=== PATIENT | male | born 1935 ===

== ENCOUNTER 2017-12-27 02:27 | Inpatient (IN) | payer BC, OTHER ==
[~2017-12-27] VITALS: Ht 167.6 cm; Wt 77.6 kg
[2017-12-27] MEDS ORDERED: APIX5TAB3 PO (02:37)
[2017-12-27] MEDS ORDERED: LOSA100T6 PO (02:37)
[2017-12-27] MEDS ORDERED: DONE10TA7 PO (02:37)
[2017-12-27] MEDS ORDERED: MULT-114 PO (02:37)
[2017-12-27] MEDS ORDERED: ALPR1TAB6 PO (02:37)
[2017-12-27] MEDS ORDERED: PRAV40TA2 PO (02:37)
[2017-12-27] MEDS ORDERED: METO-247 PO (02:37)
[2017-12-27] MEDS ORDERED: DILT240C32 PO (02:37)
[2017-12-27] MEDS ORDERED: FURO20TA3 PO (02:37)
[2017-12-27] MEDS ORDERED: ISOS30TA4 PO (02:37)
[2017-12-27] MEDS ORDERED: ESCITALOPRAM OX10 MG PO (02:37)
[2017-12-27] MEDS ORDERED: METHYL SALICYLATE/MENTHOL TOPICAL OINTMENT 29GM TUBE. TP PRN (04:30)
[2017-12-27] MEDS ORDERED: MAG HYDROX/AL HYDROX/SIMETH 30 ML ORAL.SUSP PO PRN (04:30)
[2017-12-27] MEDS ORDERED: ACETAMINOPHEN 325 MG TABLET PO PRN (04:30)
[2017-12-27] MEDS ORDERED: MAGNESIUM HYDROXIDE 2,400 MG/30 ML ORAL.SUSP. PO PRN (04:30)
[2017-12-27] MEDS ORDERED: ALPRAZolam 0.5 MG TABLET PO PRN (04:45)
[2017-12-27] MEDS ORDERED: ANTI-COAG MONITOR BY PHARMACY. MC PRN (04:45)
[2017-12-27 06:03] VITALS: BP 143/76
[2017-12-27 07:59] LABS: BASO # 0.1 x10^3/uL (0.0-0.2); BASO % 1 % (0-3); EOS # 0.3 x10^3/uL (0.0-0.7); EOS % 3 % (0-3); HEMATOCRIT 38.8 % (39.0-53.0); HEMOGLOBIN 13.5 g/dL (13.0-17.5); LYMPH # 1.8 x10^3/uL (1.0-4.8); LYMPH % 22 % (24-48); MEAN CORPUSCULAR HEMOGLOBIN 32 pg (25-35); MEAN CORPUSCULAR HGB CONC 35 g/dL (31-37); MEAN CORPUSCULAR VOLUME 93 fL (79-100); MONO # 0.6 x10^3/uL (0.0-1.1); MONO % 7 % (0-9); NEUT # 5.4 x10^3uL (1.8-7.7); NEUT % 67 % (31-73); PLATELET COUNT 302 x10^3/uL (140-400); RED BLOOD COUNT 4.19 x10^6/uL (4.30-5.70); RED CELL DISTRIBUTION WIDTH 14.5 % (11.5-14.5); WHITE BLOOD COUNT 8.1 x10^3/uL (4.0-11.0)
[2017-12-27 08:03] LABS: ALBUMIN 3.1 g/dL (3.4-5.0); ALBUMIN/GLOBULIN RATIO 0.9 (1.0-1.7); GFR 71.5; MAGNESIUM 1.8 mg/dL (1.8-2.4); POTASSIUM 3.2 mmol/L (3.5-5.1); TOTAL BILIRUBIN 0.7 mg/dL (0.2-1.0); TOTAL PROTEIN 6.6 g/dL (6.4-8.2)
[2017-12-27] MEDS: APIXABAN 5 MG TABLET. PO SCH ×2 (08:31→20:40)
[2017-12-27] MEDS: MULTIVITAMIN with MINERAL TABLET. PO SCH (08:32)
[2017-12-27] MEDS: ISOSORBIDE MONONITRATE ER 30 MG TAB.ER.24H PO SCH (08:32)
[2017-12-27] MEDS: METOPROLOL SUCC 24HR ER 50 MG TAB.ER.24H. PO SCH (08:32)
[2017-12-27] MEDS: DONEPEZIL HCL 10 MG TABLET PO SCH (08:32)
[2017-12-27] MEDS: FUROSEMIDE 20 MG TABLET PO SCH (08:32)
[2017-12-27] MEDS: LOSARTAN 50 MG TABLET. PO SCH (08:33)
[2017-12-27] MEDS ORDERED: CITALOPRAM 20 MG TABLET. PO SCH (09:00)
[2017-12-27 13:27] LABS: THYROID STIM HORMONE (TSH) 0.924 uIU/mL (0.358-3.740)
[2017-12-27 16:13] VITALS: BP 102/61
--- NOTE | 2017-12-27 20:13 | HP ---
ADMIT DATE: 12/27/2017 This note covers elements not covered in my initial note 12/27/2017. The patient was seen individually evening of 12/27/2017. Discussed with nursing staff, reviewed the chart and previously discussed with nursing staff after the patient presented to the Emergency Room at [facility] from home. Staff had called me around midnight last night and we reviewed all the referral information for this hospitalization. IDENTIFYING DATA: An 82-year-old male presented to the [facility] Emergency Room from home after he threatened suicide due to his chronic pain. Threatened to jump off the second jesus of his house. He said he lives at home with his daughter. He was aggressive towards the daughter hitting daughter's bedroom door at night. Behaviors were deemed dangerous, out of control, unmanageable. He is psychotic, confused, failed outpatient psychiatric interventions resulting in this referral. CHIEF COMPLAINT: "No." The patient responded after I asked him how long he had been here. He is unaware of it, but as I questioned him, he felt he had been here several weeks. HISTORY OF PRESENT ILLNESS: The patient has a history of dementia, Alzheimer's vascular type, but as stated he lives at home with his daughter, has chronic pain, has been increasingly agitated, aggressive, threatening suicide as noted above. He has had sleep and appetite changes, appeared paranoid. No clear history of bipolar disorder or homicidal ideation. PAST PSYCHIATRIC HISTORY: As above. MEDICAL HISTORY: Positive for hypertension, hyperlipidemia, diabetes mellitus, atrial fibrillation, pacemaker in place, COPD. Diet is regular, takes his medications whole, ambulates independently. UA was negative at [facility] Emergency Room. CODE STATUS: Full code. ALLERGIES: TRAMADOL, TORADOL. CURRENT PSYCHOTROPICS: Celexa 20 mg a day, Xanax 1 mg q.8 hours p.r.n. anxiety, Aricept 10 mg a day. FAMILY HISTORY: Noncontributory. SOCIAL HISTORY: As noted above. No alcohol or drug abuse, physical, sexual or elder abuse history is noted. Not known to be a perpetrator. REACTION TO HOSPITALIZATION: The patient is somewhat oblivious of it. ASSETS: Supportive family. MENTAL STATUS EXAMINATION: The patient was seen individually evening of 12/27/2017. He is oriented to himself at times situation. He is not very verbal, somewhat paranoid, suspicious, depressed and affect is mood congruent. Insight, judgment, recent and remote memory, attention, concentration, fund of knowledge poor, consistent with his diagnosis. IMPRESSION: Major neurocognitive disorder, Alzheimer, vascular with depression, delusion, behavioral disturbance; anxiety disorder, unspecified; impulse control disorder, unspecified. Rest as above. PLAN: Admit to geropsychiatry unit at [facility]. I will see the patient daily individually from a psychiatric standpoint, medical followup per Dr. Clancy/Dr. Scanlon. We will go ahead and change the Celexa to Zoloft 50 mg a day, add BuSpar 5 mg in the morning and increase gradually for anxiety, agitation. Continue Xanax p.r.n. along with Aricept. Make further changes post baseline assessment. MAN Lee FLORES MD DR: KENNY/lakia JOB#: [id number] / [id number]
[2017-12-27] MEDS: POTASSIUM CHLORIDE 20 MEQ TABLET.ER. PO SCH (20:40)
[2017-12-27] MEDS: ATORVASTATIN CALCIUM 10 MG TABLET. PO SCH (20:40)
--- NOTE | 2017-12-27 21:00 | PDOC ---
Exam Note: Luciano Note: Please also refer to the separate dictated note~for this date of service dictated separately.~Patient seen individually. Discussed the patient with Nursing staff reviewed the chart.~Reviewed interim history and current functioning. Reviewed vital signs,~Labs/ Radiology~and current medications noted below. Continue current treatment with the changes noted in the dictated addendum note Assessment: Vital Signs: Vital Signs Date Time Temp Pulse Resp B/P (MAP) Pulse Ox O2 Delivery O2 Flow Rate FiO2 12/27/17 16:13 97.7 71 16 102/61 (75) 99 Room Air Labs: Laboratory Tests Test 12/27/17 07:30 White Blood Count 8.1 x10^3/uL (4.0-11.0) Red Blood Count 4.19 x10^6/uL (4.30-5.70) L Hemoglobin 13.5 g/dL (13.0-17.5) Hematocrit 38.8 % (39.0-53.0) L Mean Corpuscular Volume 93 fL (79-100) Mean Corpuscular Hemoglobin 32 pg (25-35) Mean Corpuscular Hemoglobin Concent 35 g/dL (31-37) Red Cell Distribution Width 14.5 % (11.5-14.5) Platelet Count 302 x10^3/uL (140-400) Neutrophils (%) (Auto) 67 % (31-73) Lymphocytes (%) (Auto) 22 % (24-48) L Monocytes (%) (Auto) 7 % (0-9) Eosinophils (%) (Auto) 3 % (0-3) Basophils (%) (Auto) 1 % (0-3) Neutrophils # (Auto) 5.4 x10^3uL (1.8-7.7) Lymphocytes # (Auto) 1.8 x10^3/uL (1.0-4.8) Monocytes # (Auto) 0.6 x10^3/uL (0.0-1.1) Eosinophils # (Auto) 0.3 x10^3/uL (0.0-0.7) Basophils # (Auto) 0.1 x10^3/uL (0.0-0.2) Sodium Level 140 mmol/L (136-145) Potassium Level 3.2 mmol/L (3.5-5.1) L Chloride Level 102 mmol/L (98-107) Carbon Dioxide Level 29 mmol/L (21-32) Anion Gap 9 (6-14) Blood Urea Nitrogen 20 mg/dL (8-26) Creatinine 1.0 mg/dL (0.7-1.3) Estimated GFR (Cockcroft-Gault) 71.5 BUN/Creatinine Ratio 20 (6-20) Glucose Level 95 mg/dL (70-99) Calcium Level 9.0 mg/dL (8.5-10.1) Magnesium Level 1.8 mg/dL (1.8-2.4) Iron Level 110 ug/dL (65-175) Total Iron Binding Capacity 298 ug/dL (250-450) Iron Saturation 37 % (15-34) H Total Bilirubin 0.7 mg/dL (0.2-1.0) Aspartate Amino Transferase (AST) 22 U/L (15-37) Alanine Aminotransferase (ALT) 29 U/L (16-63) Alkaline Phosphatase 104 U/L (46-116) Total Protein 6.6 g/dL (6.4-8.2) Albumin 3.1 g/dL (3.4-5.0) L Albumin/Globulin Ratio 0.9 (1.0-1.7) L Triglycerides Level 87 mg/dL (0-150) Cholesterol Level 155 mg/dL (0-200) LDL Cholesterol, Calculated 92 mg/dL (0-100) VLDL Cholesterol, Calculated 17 mg/dL (0-40) Non-HDL Cholesterol Calculated 109 mg/dL (0-129) HDL Cholesterol 46 mg/dL (40-60) Cholesterol/HDL Ratio 3.0 Vitamin B12 Level 468 pg/mL (247-911) 25-Hydroxy Vitamin D Total 39.3 ng/mL (30-100) Thyroid Stimulating Hormone (TSH) 0.924 uIU/mL (0.358-3.740) Current Medications: Meds: Current Medications Acetaminophen (Tylenol) 650 mg PRN Q6HRS PRN PO PAIN / TEMP; Start 12/27/17 at 04:30 Multi-Ingredient Ointment (Analgesic [place]) 1 ashvin PRN QID PRN TP MUSCLE PAIN; Start 12/27/17 at 04:30 Al Hydroxide/Mg Hydroxide (Mylanta Plus Xs) 15 ml PRN AFTMEALHC PRN PO DYSPEPSIA; Start 12/27/17 at 04:30 Magnesium Hydroxide (Milk Of Magnesia) 2,400 mg PRN QHS PRN PO CONSTIPATION; Start 12/27/17 at 04:30 Alprazolam (Xanax) 1 mg PRN Q8HRS PRN PO ANXIETY / AGITATION; Start 12/27/17 at 04:45 Donepezil HCl (Aricept) 10 mg DAILY PO Last administered on 12/27/17 08:32; Start 12/27/17 at 09:00 Citalopram Hydrobromide (CeleXA) 20 mg DAILY PO Last administered on 12/27/17 08:31; Start 12/27/17 at 09:00; Stop 12/27/17 at 18:52; Status DC Diltiazem HCl (Cardizem 24hr Cd) 240 mg DAILY PO Last administered on at 08:31; Start 12/27/17 at 09:00 Furosemide (Lasix) 20 mg DAILY PO Last administered on 12/27/17 08:32; Start 12/27/17 at 09:00 Isosorbide Mononitrate (Imdur) 30 mg DAILY PO Last administered on 12/27/17 08 :32; Start 12/27/17 at 09:00 Apixaban (Eliquis) 5 mg BID PO Last administered on 12/27/17 20:40; Start at 09:00 Losartan Potassium (Cozaar) 100 mg DAILY PO Last administered on 12/27/17 08: 33; Start 12/27/17 at 09:00 Metoprolol Succinate (Toprol Xl) 100 mg DAILY PO Last administered on 08:32; Start 12/27/17 at 09:00 Multivitamins/ Calcium (Thera-M Plus) 1 tab DAILY PO Last administered on 08:32; Start 12/27/17 at 09:00 Atorvastatin Calcium (Lipitor) 10 mg QHS PO Last administered on 12/27/17at 20: 40; Start 12/27/17 at 21:00 Info (Anti-Coagulation Monitoring By Pharmacy) 1 each PRN DAILY PRN MC SEE COMMENTS; Start 12/27/17 at 04:45 Sertraline HCl (Zoloft) 50 mg DAILY PO ; Start 12/28/17 at 09:00 Buspirone HCl (Buspar) 5 mg DAILY PO ; Start 12/28/17 at 09:00 Potassium Chloride (Klor-Con) 20 meq BID PO Last administered on 12/27/17at 20: 40; Start 12/27/17 at 21:00 Active Scripts Active Reported Donepezil Hcl 10 Mg Tablet 10 Mg PO DAILY Metoprolol Succinate ( Xl ) (Metoprolol Succinate) 100 Mg Tab.er.24h 100 Mg PO DAILY Losartan Potassium 100 Mg Tablet 100 Mg PO DAILY Diltiazem 24HR Cd (Diltiazem Hcl) 240 Mg Cap.er.24h 240 Mg PO DAILY Pravastatin Sodium 40 Mg Tablet 40 Mg PO QHS Multivitamins With Minerals (Multivitamin With Minerals) 1 Each Tablet 1 Tab PO DAILY Escitalopram Oxalate 10 Mg Tablet 10 Mg PO DAILY Alprazolam 1 Mg Tablet 1 Mg PO PRN TID PRN Eliquis (Apixaban) 5 Mg Tablet 5 Mg PO BID Isosorbide Mononitrate Er (Isosorbide Mononitrate) 30 Mg Tab.er.24h 30 Mg PO DAILY Furosemide 20 Mg Tablet 20 Mg PO DAILY I have reviewed the current psychotropics carefully including drug interactions. Risk benefit ratio favors no change other than as noted in my dictated progress note. Diagnosis: Problems: (1) Anxiety disorder (2) Impulse control disorder (3) Dementia, vascular, with delusions (4) Dementia, vascular, with depression (5) Dementia in Alzheimer's disease with delusions (6) Dementia in Alzheimer's disease with depression ADDISON FLORES MD December 27, 2017 21:00
[2017-12-28 03:09] LABS: T3 TOTAL 73 ng/dL (71-180); THYROXINE 4.1 ug/dL (4.5-12.0)
[2017-12-28 04:07] LABS: HEMOGLOBIN A1C 6.1 % (4.8-5.6)
[2017-12-28 06:16] VITALS: BP 127/69
[2017-12-28] MEDS: METOPROLOL SUCC 24HR ER 50 MG TAB.ER.24H. PO SCH (09:15)
[2017-12-28] MEDS: DONEPEZIL HCL 10 MG TABLET PO SCH (09:15)
[2017-12-28] MEDS: MULTIVITAMIN with MINERAL TABLET. PO SCH (09:16)
[2017-12-28] MEDS: busPIRone 5 MG TABLET. PO SCH (09:16)
[2017-12-28] MEDS: LOSARTAN 50 MG TABLET. PO SCH (09:16)
[2017-12-28] MEDS: ISOSORBIDE MONONITRATE ER 30 MG TAB.ER.24H PO SCH (09:16)
[2017-12-28] MEDS: FUROSEMIDE 20 MG TABLET PO SCH (09:16)
[2017-12-28] MEDS: APIXABAN 5 MG TABLET. PO SCH ×2 (09:16→19:14)
[2017-12-28] MEDS: SERTRALINE 50 MG TABLET. PO SCH (09:16)
[2017-12-28] MEDS: POTASSIUM CHLORIDE 20 MEQ TABLET.ER. PO SCH ×2 (09:17→19:14)
--- NOTE | 2017-12-28 13:09 | EKG ---
[address] [address] Test Date: 2017-12-28 Test Time: 12:41:09 Pat Name: DARIAN DEL TORO Department: Room: [facility] Gender: M Real Estate Leasing Agent: : [id number] Requested By: ADDISON FLORES Order Number: [id number] Reading MD: Measurements Intervals [place] Rate: 80 P: -90 AL: 294 QRS: -76 QRSD: 176 T: 91 QT: 434 QTc: 505 Interpretive Statements SINUS RHYTHM PROLONGED AL INTERVAL ABNORMAL LEFT AXIS DEVIATION NON SPECIFIC INTRAVENTRICULAR BLOCK QRS(T) CONTOUR ABNORMALITY CONSISTENT WITH SEPTAL INFARCT PROBABLY OLD CONSISTENT WITH INFERIOR INFARCT POSSIBLY RECENT ABNORMAL ECG RI6.01 No previous ECG available for comparison
[2017-12-28 16:10] VITALS: BP 121/68
[2017-12-28] MEDS: ATORVASTATIN CALCIUM 10 MG TABLET. PO SCH (19:14)
--- NOTE | 2017-12-28 20:39 | PDOC ---
Exam Note: Luciano Note: Please also refer to the separate dictated note~for this date of service dictated separately.~Patient seen individually. Discussed the patient with Nursing staff reviewed the chart.~Reviewed interim history and current functioning. Reviewed vital signs,~Labs/ Radiology~and current medications noted below. Continue current treatment with the changes noted in the dictated addendum note Assessment: Vital Signs: Vital Signs Date Time Temp Pulse Resp B/P (MAP) Pulse Ox O2 Delivery O2 Flow Rate FiO2 12/28/17 16:10 97.2 67 20 121/68 (85) 97 Room Air I&O Intake and Output 12/28/17 07:00 Intake Total 600 ml Balance 600 ml Intake Oral 600 ml Current Medications: Meds: Current Medications Acetaminophen (Tylenol) 650 mg PRN Q6HRS PRN PO PAIN / TEMP; Start 12/27/17 at 04:30 Multi-Ingredient Ointment (Analgesic [place]) 1 ashvin PRN QID PRN TP MUSCLE PAIN; Start 12/27/17 at 04:30 Al Hydroxide/Mg Hydroxide (Mylanta Plus Xs) 15 ml PRN AFTMEALHC PRN PO DYSPEPSIA; Start 12/27/17 at 04:30 Magnesium Hydroxide (Milk Of Magnesia) 2,400 mg PRN QHS PRN PO CONSTIPATION; Start 12/27/17 at 04:30 Alprazolam (Xanax) 1 mg PRN Q8HRS PRN PO ANXIETY / AGITATION; Start 12/27/17 at 04:45 Donepezil HCl (Aricept) 10 mg DAILY PO Last administered on 12/28/17at 09:15; Start 12/27/17 at 09:00 Citalopram Hydrobromide (CeleXA) 20 mg DAILY PO Last administered on 12/27/17at 08:31; Start 12/27/17 at 09:00; Stop 12/27/17 at 18:52; Status DC Diltiazem HCl (Cardizem 24hr Cd) 240 mg DAILY PO Last administered on at 09:15; Start 12/27/17 at 09:00 Furosemide (Lasix) 20 mg DAILY PO Last administered on 12/28/17at 09:16; Start 12/27/17 at 09:00 Isosorbide Mononitrate (Imdur) 30 mg DAILY PO Last administered on 12/28/17 09 :16; Start 12/27/17 at 09:00 Apixaban (Eliquis) 5 mg BID PO Last administered on 12/28/17 19:14; Start at 09:00 Losartan Potassium (Cozaar) 100 mg DAILY PO Last administered on 12/28/17 09: 16; Start 12/27/17 at 09:00 Metoprolol Succinate (Toprol Xl) 100 mg DAILY PO Last administered on 09:15; Start 12/27/17 at 09:00 Multivitamins/ Calcium (Thera-M Plus) 1 tab DAILY PO Last administered on 09:16; Start 12/27/17 at 09:00 Atorvastatin Calcium (Lipitor) 10 mg QHS PO Last administered on 12/28/17 19: 14; Start 12/27/17 at 21:00 Info (Anti-Coagulation Monitoring By Pharmacy) 1 each PRN DAILY PRN MC SEE COMMENTS; Start 12/27/17 at 04:45 Sertraline HCl (Zoloft) 50 mg DAILY PO Last administered on 12/28/17 09:16; Start 12/28/17 at 09:00; Stop 12/30/17 at 08:00 Buspirone HCl (Buspar) 5 mg DAILY PO Last administered on 12/28/17 09:16; Start 12/28/17 at 09:00 Potassium Chloride (Klor-Con) 20 meq BID PO Last administered on 12/28/17 19: 14; Start 12/27/17 at 21:00 Sertraline HCl (Zoloft) 75 mg DAILY PO ; Start 12/30/17 at 09:00 Active Scripts Active Reported Donepezil Hcl 10 Mg Tablet 10 Mg PO DAILY Metoprolol Succinate ( Xl ) (Metoprolol Succinate) 100 Mg Tab.er.24h 100 Mg PO DAILY Losartan Potassium 100 Mg Tablet 100 Mg PO DAILY Diltiazem 24HR Cd (Diltiazem Hcl) 240 Mg Cap.er.24h 240 Mg PO DAILY Pravastatin Sodium 40 Mg Tablet 40 Mg PO QHS Multivitamins With Minerals (Multivitamin With Minerals) 1 Each Tablet 1 Tab PO DAILY Escitalopram Oxalate 10 Mg Tablet 10 Mg PO DAILY Alprazolam 1 Mg Tablet 1 Mg PO PRN TID PRN Eliquis (Apixaban) 5 Mg Tablet 5 Mg PO BID Isosorbide Mononitrate Er (Isosorbide Mononitrate) 30 Mg Tab.er.24h 30 Mg PO DAILY Furosemide 20 Mg Tablet 20 Mg PO DAILY I have reviewed the current psychotropics carefully including drug interactions. Risk benefit ratio favors no change other than as noted in my dictated progress note. Diagnosis: Problems: (1) Anxiety disorder (2) Impulse control disorder (3) Dementia, vascular, with delusions (4) Dementia, vascular, with depression (5) Dementia in Alzheimer's disease with delusions (6) Dementia in Alzheimer's disease with depression ADDISON FLORES MD December 28, 2017 20:39
--- NOTE | 2017-12-28 23:45 | CONS ---
DATE OF CONSULTATION: 12/28/2017 REASON FOR CONSULTATION: Medical management. HISTORY OF PRESENT ILLNESS: The patient is an 82-year-old male patient who apparently presented to [facility] Emergency Room from home after he threatened suicide due to his chronic pain. He threatened to jump off the second story of his house. He said he lives at home with his daughter. He was aggressive towards her daughter, hitting daughter's bedroom door at night. His behavior apparently was deemed dangerous, out of control, unmanageable. He was psychotic, confused, and therefore, he was admitted for inpatient psychiatric stabilization. When I questioned him this afternoon, he complained his daughter's friend as the cause of all his trouble, although he cannot be more specific and explain why she is doing this for him. In fact, he denied having any medical problem at all. PAST PSYCHIATRIC HISTORY: Significant for dementia, Alzheimer, vascular type. When I asked him about pain, he said he does not have any pain at all, although the whole reason for his agitation and aggressive behavior was because of his chronic pain according to the admission history. PAST MEDICAL HISTORY: Significant for hypertension, hyperlipidemia, benign prostatic hypertrophy, atrial fibrillation, and also COPD as well as type 2 diabetes, although at least in his medication list, he does not have any medication for his diabetes. ALLERGIES: He is allergic to TRAMADOL and TORADOL. MEDICATIONS: He is currently on Aricept 10 mg once a day, apixaban 5 mg twice a day, pravastatin sodium 40 mg at bedtime, isosorbide mononitrate 30 mg daily, metoprolol succinate 100 mg once a day, diltiazem hydrochloride 240 mg daily, losartan potassium 100 mg daily, escitalopram oxalate 10 mg once a day, alprazolam 1 mg p.o. t.i.d. p.r.n. for anxiety and agitation. He is on furosemide 20 mg daily and multivitamin 1 tablet once a day. FAMILY HISTORY: Noncontributory. SOCIAL HISTORY: He lives with his daughter. He said he quit smoking in 1953 and does not drink alcohol. He used to be a diesel engine i pipe fitter. According to his description, he has been fairly independent, taking care of himself. His daughter does the cooking according to him. PHYSICAL EXAMINATION: GENERAL: When I examined him this afternoon, he looked well and was clearly in no apparent respiratory distress, pale, but no jaundice, cyanosis, or thyromegaly. No jugular venous distension. No lower limb edema. VITAL SIGNS: Her heart rate was 61, blood pressure was 127/69, temperature was 97.4, respiratory rate was 18, and oxygen saturation was 96% on room air. HEAD, EYES, EARS, NOSE, AND THROAT: Showed normocephalic, atraumatic. NECK: His neck was supple. HEART: Showed normal first and second heart sounds. No gallop, rub, or murmur. CHEST: Clear to auscultation. No crepitation or rhonchi. ABDOMEN: Scaphoid, soft, nontender. NEUROLOGIC: He is awake, alert, responding appropriately, seemed to be very pleasant, displayed no evidence of any aggression towards us. All his cranial nerves seemed to be grossly intact. He moves extremities without difficulty. He said he ambulates with a walker without assistance, but it seemed clearly he has severe dementia as he not recalled that he had any pain and did not recall any threat to suicide. Medically, he has multiple medical problems including hypertension, hyperlipidemia, atrial fibrillation, benign prostatic hypertrophy, type 2 diabetes, and COPD. LABORATORY DATA: Showed his serum sodium was 140, potassium 3.2, chloride 102, bicarbonate 29, anion gap of 9, BUN 20, creatinine 1, estimated GFR was 71 mL per minute. His glucose was 95, calcium was 9, magnesium was 1.8. Total bilirubin, AST, ALT, alkaline phosphatase, total protein was 6.6, albumin was 3.1. His hemoglobin A1c was 6.1%. His serum iron was high at 110, TIBC was 298 and percent saturation was 37%. His serum triglycerides were 87. Total cholesterol 155, LDL cholesterol was 92, VLDL was 17, and HDL cholesterol of 46, the ratio was 3. His serum vitamin B12 was 468 picograms per mL. A 25-hydroxyvitamin D was 39. TSH was 0.924. Total T4 was 4.1 and total T3 was 73. His white cell count was 8100, hemoglobin 13.5, hematocrit 39, MCV 93, and platelet count 302,000 with normal manual differential. So, all in all, the patient seems to be medically stable. The only abnormality on his lab work is that his potassium was low at 3.2. We did start him yesterday on potassium chloride. I will check his labs again tomorrow. Otherwise, I will continue with all his medication. I will review all the lab works that are still pending at the time of this dictation and make any necessary recommendation. Thank you, Dr. Sidhu for allowing me to participate in the care of this patient. TAHIR MORALES MD DR: RICH/lakia JOB#: [id number] / [id number]
[2017-12-29 06:05] VITALS: BP 150/78
[2017-12-29] MEDS: POTASSIUM CHLORIDE 20 MEQ TABLET.ER. PO SCH ×2 (09:26→19:53)
[2017-12-29] MEDS: ISOSORBIDE MONONITRATE ER 30 MG TAB.ER.24H PO SCH (09:26)
[2017-12-29] MEDS: MULTIVITAMIN with MINERAL TABLET. PO SCH (09:26)
[2017-12-29] MEDS: SERTRALINE 50 MG TABLET. PO SCH (09:26)
[2017-12-29] MEDS: DONEPEZIL HCL 10 MG TABLET PO SCH (09:26)
[2017-12-29] MEDS: APIXABAN 5 MG TABLET. PO SCH ×2 (09:26→19:54)
[2017-12-29] MEDS: busPIRone 5 MG TABLET. PO SCH (09:26)
[2017-12-29] MEDS: FUROSEMIDE 20 MG TABLET PO SCH (09:26)
[2017-12-29] MEDS: METOPROLOL SUCC 24HR ER 50 MG TAB.ER.24H. PO SCH (09:27)
[2017-12-29] MEDS: LOSARTAN 50 MG TABLET. PO SCH (09:27)
[2017-12-29 16:04] VITALS: BP 113/61
[2017-12-29] MEDS: ATORVASTATIN CALCIUM 10 MG TABLET. PO SCH (19:54)
--- NOTE | 2017-12-29 20:41 | PDOC ---
Exam Note: Luciano Note: Please also refer to the separate dictated note~for this date of service dictated separately.~Patient seen individually. Discussed the patient with Nursing staff reviewed the chart.~Reviewed interim history and current functioning. Reviewed vital signs,~Labs/ Radiology~and current medications noted below. Continue current treatment with the changes noted in the dictated addendum note Assessment: Vital Signs: Vital Signs Date Time Temp Pulse Resp B/P (MAP) Pulse Ox O2 Delivery O2 Flow Rate FiO2 12/29/17 16:04 96.8 68 18 113/61 (78) 97 12/29/17 06:05 Room Air I&O Intake and Output 12/29/17 07:00 Intake Total 1200 ml Balance 1200 ml Intake Oral 1200 ml Current Medications: Meds: Current Medications Acetaminophen (Tylenol) 650 mg PRN Q6HRS PRN PO PAIN / TEMP; Start 12/27/17 at 04:30 Multi-Ingredient Ointment (Analgesic [place]) 1 ashvin PRN QID PRN TP MUSCLE PAIN; Start 12/27/17 at 04:30 Al Hydroxide/Mg Hydroxide (Mylanta Plus Xs) 15 ml PRN AFTMEALHC PRN PO DYSPEPSIA; Start 12/27/17 at 04:30 Magnesium Hydroxide (Milk Of Magnesia) 2,400 mg PRN QHS PRN PO CONSTIPATION; Start 12/27/17 at 04:30 Alprazolam (Xanax) 1 mg PRN Q8HRS PRN PO ANXIETY / AGITATION; Start 12/27/17 at 04:45 Donepezil HCl (Aricept) 10 mg DAILY PO Last administered on 12/29/17at 09:26; Start 12/27/17 at 09:00 Citalopram Hydrobromide (CeleXA) 20 mg DAILY PO Last administered on 12/27/17at 08:31; Start 12/27/17 at 09:00; Stop 12/27/17 at 18:52; Status DC Diltiazem HCl (Cardizem 24hr Cd) 240 mg DAILY PO Last administered on 12/29/17at 09:26; Start 12/27/17 at 09:00 Furosemide (Lasix) 20 mg DAILY PO Last administered on 12/29/17at 09:26; Start at 09:00 Isosorbide Mononitrate (Imdur) 30 mg DAILY PO Last administered on 12/29/17 09: 26; Start 12/27/17 at 09:00 Apixaban (Eliquis) 5 mg BID PO Last administered on 12/29/17 19:54; Start 12/27 at 09:00 Losartan Potassium (Cozaar) 100 mg DAILY PO Last administered on 12/29/17 09:27 ; Start 12/27/17 at 09:00 Metoprolol Succinate (Toprol Xl) 100 mg DAILY PO Last administered on 12/29/17 09:27; Start 12/27/17 at 09:00 Multivitamins/ Calcium (Thera-M Plus) 1 tab DAILY PO Last administered on 09:26; Start 12/27/17 at 09:00 Atorvastatin Calcium (Lipitor) 10 mg QHS PO Last administered on 12/29/17 19:54 ; Start 12/27/17 at 21:00 Info (Anti-Coagulation Monitoring By Pharmacy) 1 each PRN DAILY PRN MC SEE COMMENTS; Start 12/27/17 at 04:45 Sertraline HCl (Zoloft) 50 mg DAILY PO Last administered on 12/29/17 09:26; Start 12/28/17 at 09:00; Stop 12/30/17 at 08:00 Buspirone HCl (Buspar) 5 mg DAILY PO Last administered on 12/29/17 09:26; Start 12/28/17 at 09:00 Potassium Chloride (Klor-Con) 20 meq BID PO Last administered on 12/29/17 19:53 ; Start 12/27/17 at 21:00 Sertraline HCl (Zoloft) 75 mg DAILY PO ; Start 12/30/17 at 09:00 Active Scripts Active Reported Donepezil Hcl 10 Mg Tablet 10 Mg PO DAILY Metoprolol Succinate ( Xl ) (Metoprolol Succinate) 100 Mg Tab.er.24h 100 Mg PO DAILY Losartan Potassium 100 Mg Tablet 100 Mg PO DAILY Diltiazem 24HR Cd (Diltiazem Hcl) 240 Mg Cap.er.24h 240 Mg PO DAILY Pravastatin Sodium 40 Mg Tablet 40 Mg PO QHS Multivitamins With Minerals (Multivitamin With Minerals) 1 Each Tablet 1 Tab PO DAILY Escitalopram Oxalate 10 Mg Tablet 10 Mg PO DAILY Alprazolam 1 Mg Tablet 1 Mg PO PRN TID PRN Eliquis (Apixaban) 5 Mg Tablet 5 Mg PO BID Isosorbide Mononitrate Er (Isosorbide Mononitrate) 30 Mg Tab.er.24h 30 Mg PO DAILY Furosemide 20 Mg Tablet 20 Mg PO DAILY I have reviewed the current psychotropics carefully including drug interactions. Risk benefit ratio favors no change other than as noted in my dictated progress note. Diagnosis: Problems: (1) Anxiety disorder (2) Impulse control disorder (3) Dementia, vascular, with delusions (4) Dementia, vascular, with depression (5) Dementia in Alzheimer's disease with delusions (6) Dementia in Alzheimer's disease with depression ADDISON FLORES MD Dec 29, 2017 20:41
--- NOTE | 2017-12-30 01:53 | PN ---
DATE: 12/28/2017 This is late entry of 12/28/2017 covers elements not covered in my initial note 12/28/2017. SUBJECTIVE: I met with the patient evening of 12/28/2017 and staffed a treatment team meeting with the entire team in the morning. We reviewed the patient's history at length. Reportedly, the patient had a lady who comes in to assist him at home. He describes her as being "an old hag." and then referred to her at one point with the B word. When I questioned him in the evening; however, he states he is appreciative of her help, but gets irritable with her because of the constant proximity of contact, which is needed for her to assist him. He is oriented and aware of the year and where he is. In the morning, he was somewhat upset, wanting to talk to his daughter. He minimizes the statement of suicide threatening to jump off the second story of the house and being aggressive with his daughter or banging on her door at night, all of which I processed with him. REVIEW OF SYSTEMS: No CV, , pulmonary, eye, ENT system symptoms on review. Reliability varies. MENTAL STATUS EXAM: As noted above. Abstraction fair, computation impaired, language function intact. Attention span short. He is quite verbal, smiling at times, a little irritable at other times. LABORATORY DATA: Reviewed. IMPRESSION: Major depressive disorder, recurrent. Major neurocognitive disorder, early Alzheimer, vascular with depression. Rest unchanged. PLAN: Continue Zoloft 50 mg a day, increase to 75 mg after 2 days on 50. Continue Aricept 10 mg a day, Xanax p.r.n., BuSpar 5 mg daily in the morning. MAN Lee FLORES MD DR: KENNY/lakia JOB#: [id number] / [id number]
[2017-12-30 06:15] VITALS: BP 150/88
[2017-12-30] MEDS: METOPROLOL SUCC 24HR ER 50 MG TAB.ER.24H. PO SCH (08:02)
[2017-12-30] MEDS: POTASSIUM CHLORIDE 20 MEQ TABLET.ER. PO SCH ×2 (08:02→19:58)
[2017-12-30] MEDS: APIXABAN 5 MG TABLET. PO SCH ×2 (08:03→19:57)
[2017-12-30] MEDS: ISOSORBIDE MONONITRATE ER 30 MG TAB.ER.24H PO SCH (08:03)
[2017-12-30] MEDS: LOSARTAN 50 MG TABLET. PO SCH (08:04)
[2017-12-30] MEDS: busPIRone 5 MG TABLET. PO SCH (08:04)
[2017-12-30] MEDS: DONEPEZIL HCL 10 MG TABLET PO SCH (08:04)
[2017-12-30] MEDS: FUROSEMIDE 20 MG TABLET PO SCH (08:04)
[2017-12-30] MEDS: MULTIVITAMIN with MINERAL TABLET. PO SCH (08:04)
[2017-12-30] MEDS: SERTRALINE 25 MG TABLET. PO SCH (08:07)
[2017-12-30 16:35] VITALS: BP 98/71
[2017-12-30] MEDS: ATORVASTATIN CALCIUM 10 MG TABLET. PO SCH (19:58)
--- NOTE | 2017-12-30 22:06 | PDOC ---
Exam Note: Luciano Note: Please also refer to the separate dictated note~for this date of service dictated separately.~Patient seen individually. Discussed the patient with Nursing staff reviewed the chart.~Reviewed interim history and current functioning. Reviewed vital signs,~Labs/ Radiology~and current medications noted below. Continue current treatment with the changes noted in the dictated addendum note Assessment: Vital Signs: Vital Signs Date Time Temp Pulse Resp B/P (MAP) Pulse Ox O2 Delivery O2 Flow Rate FiO2 12/30/17 16:35 97.8 75 18 98/71 (80) 95 12/29/17 06:05 Room Air I&O Intake and Output 12/30/17 07:00 Intake Total 1080 ml Balance 1080 ml Intake Oral 1080 ml # Bowel Movements 1 Current Medications: Meds: Current Medications Acetaminophen (Tylenol) 650 mg PRN Q6HRS PRN PO PAIN / TEMP; Start 12/27/17 at 04:30 Multi-Ingredient Ointment (Analgesic [place]) 1 ashvin PRN QID PRN TP MUSCLE PAIN; Start 12/27/17 at 04:30 Al Hydroxide/Mg Hydroxide (Mylanta Plus Xs) 15 ml PRN AFTMEALHC PRN PO DYSPEPSIA; Start 12/27/17 at 04:30 Magnesium Hydroxide (Milk Of Magnesia) 2,400 mg PRN QHS PRN PO CONSTIPATION; Start 12/27/17 at 04:30 Alprazolam (Xanax) 1 mg PRN Q8HRS PRN PO ANXIETY / AGITATION; Start 12/27/17 at 04:45 Donepezil HCl (Aricept) 10 mg DAILY PO Last administered on 12/30/17at 08:04; Start 12/27/17 at 09:00 Citalopram Hydrobromide (CeleXA) 20 mg DAILY PO Last administered on 12/27/17at 08:31; Start 12/27/17 at 09:00; Stop 12/27/17 at 18:52; Status DC Diltiazem HCl (Cardizem 24hr Cd) 240 mg DAILY PO Last administered on 12/30/17at 08:04; Start 12/27/17 at 09:00 Furosemide (Lasix) 20 mg DAILY PO Last administered on 12/30/17at 08:04; Start at 09:00 Isosorbide Mononitrate (Imdur) 30 mg DAILY PO Last administered on 12/30/17 08: 03; Start 12/27/17 at 09:00 Apixaban (Eliquis) 5 mg BID PO Last administered on 12/30/17at 19:57; Start 12/27 at 09:00 Losartan Potassium (Cozaar) 100 mg DAILY PO Last administered on 12/30/17at 08:04 ; Start 12/27/17 at 09:00 Metoprolol Succinate (Toprol Xl) 100 mg DAILY PO Last administered on 12/30/17at 08:02; Start 12/27/17 at 09:00 Multivitamins/ Calcium (Thera-M Plus) 1 tab DAILY PO Last administered on at 08:04; Start 12/27/17 at 09:00 Atorvastatin Calcium (Lipitor) 10 mg QHS PO Last administered on 12/30/17at 19:58 ; Start 12/27/17 at 21:00 Info (Anti-Coagulation Monitoring By Pharmacy) 1 each PRN DAILY PRN [facility] SEE COMMENTS; Start 12/27/17 at 04:45 Sertraline HCl (Zoloft) 50 mg DAILY PO Last administered on 12/29/17at 09:26; Start 12/28/17 at 09:00; Stop 12/30/17 at 08:00; Status DC Buspirone HCl (Buspar) 5 mg DAILY PO Last administered on 12/30/17at 08:04; Start 12/28/17 at 09:00; Stop 12/30/17 at 18:36; Status DC Potassium Chloride (Klor-Con) 20 meq BID PO Last administered on 12/30/17at 19:58 ; Start 12/27/17 at 21:00 Sertraline HCl (Zoloft) 75 mg DAILY PO Last administered on 12/30/17at 08:07; Start 12/30/17 at 09:00 Buspirone HCl (Buspar) 5 mg BID@0900,1700 PO ; Start 12/31/17 at 09:00 Active Scripts Active Reported Donepezil Hcl 10 Mg Tablet 10 Mg PO DAILY Metoprolol Succinate ( Xl ) (Metoprolol Succinate) 100 Mg Tab.er.24h 100 Mg PO DAILY Losartan Potassium 100 Mg Tablet 100 Mg PO DAILY Diltiazem 24HR Cd (Diltiazem Hcl) 240 Mg Cap.er.24h 240 Mg PO DAILY Pravastatin Sodium 40 Mg Tablet 40 Mg PO QHS Multivitamins With Minerals (Multivitamin With Minerals) 1 Each Tablet 1 Tab PO DAILY Escitalopram Oxalate 10 Mg Tablet 10 Mg PO DAILY Alprazolam 1 Mg Tablet 1 Mg PO PRN TID PRN Eliquis (Apixaban) 5 Mg Tablet 5 Mg PO BID Isosorbide Mononitrate Er (Isosorbide Mononitrate) 30 Mg Tab.er.24h 30 Mg PO DAILY Furosemide 20 Mg Tablet 20 Mg PO DAILY I have reviewed the current psychotropics carefully including drug interactions. Risk benefit ratio favors no change other than as noted in my dictated progress note. Diagnosis: Problems: (1) Anxiety disorder (2) Impulse control disorder (3) Dementia, vascular, with delusions (4) Dementia, vascular, with depression (5) Dementia in Alzheimer's disease with delusions (6) Dementia in Alzheimer's disease with depression ADDISON FLORES MD Dec 30, 2017 22:06
[2017-12-31] MEDS ORDERED: ACET325T9 PO (03:23)
[2017-12-31] MEDS ORDERED: MAGN400O7 PO (03:24)
[2017-12-31] MEDS ORDERED: MAG30ORA2 PO (03:24)
[2017-12-31] MEDS ORDERED: METH29OI TP (03:25)
[2017-12-31] MEDS ORDERED: SERT50TA PO (03:26)
[2017-12-31] MEDS ORDERED: POTA20TA4 PO (03:26)
[2017-12-31] MEDS ORDERED: BUSP5TAB PO (03:27)
[2017-12-31 05:50] VITALS: BP 151/83
[2017-12-31] MEDS: FUROSEMIDE 20 MG TABLET PO SCH (07:36)
[2017-12-31] MEDS: MULTIVITAMIN with MINERAL TABLET. PO SCH (07:37)
[2017-12-31] MEDS: POTASSIUM CHLORIDE 20 MEQ TABLET.ER. PO SCH ×2 (07:37→19:55)
[2017-12-31] MEDS: ISOSORBIDE MONONITRATE ER 30 MG TAB.ER.24H PO SCH (07:37)
[2017-12-31] MEDS: DONEPEZIL HCL 10 MG TABLET PO SCH (07:37)
[2017-12-31] MEDS: METOPROLOL SUCC 24HR ER 50 MG TAB.ER.24H. PO SCH (07:37)
[2017-12-31] MEDS: APIXABAN 5 MG TABLET. PO SCH ×2 (07:38→19:55)
[2017-12-31] MEDS: SERTRALINE 25 MG TABLET. PO SCH (07:38)
[2017-12-31] MEDS: LOSARTAN 50 MG TABLET. PO SCH (07:38)
[2017-12-31] MEDS: busPIRone 5 MG TABLET. PO SCH ×2 (07:39→17:04)
[2017-12-31 16:29] VITALS: BP 145/81
[2017-12-31] MEDS: ATORVASTATIN CALCIUM 10 MG TABLET. PO SCH (19:55)
--- NOTE | 2017-12-31 19:57 | PDOC ---
Exam Note: Luciano Note: Please also refer to the separate dictated note~for this date of service dictated separately.~Patient seen individually. Discussed the patient with Nursing staff reviewed the chart.~Reviewed interim history and current functioning. Reviewed vital signs,~Labs/ Radiology~and current medications noted below. Continue current treatment with the changes noted in the dictated addendum note Assessment: Vital Signs: Vital Signs Date Time Temp Pulse Resp B/P (MAP) Pulse Ox O2 Delivery O2 Flow Rate FiO2 12/31/17 16:29 97.1 66 18 145/81 (102) 97 12/29/17 06:05 Room Air I&O Intake and Output 12/31/17 07:00 Intake Total 1080 ml Balance 1080 ml Intake Oral 1080 ml Current Medications: Meds: Current Medications Acetaminophen (Tylenol) 650 mg PRN Q6HRS PRN PO PAIN / TEMP; Start 12/27/17 at 04:30 Multi-Ingredient Ointment (Analgesic [place]) 1 bladimir PRN QID PRN TP MUSCLE PAIN; Start 12/27/17 at 04:30 Al Hydroxide/Mg Hydroxide (Mylanta Plus Xs) 15 ml PRN AFTMEALHC PRN PO DYSPEPSIA; Start 12/27/17 at 04:30 Magnesium Hydroxide (Milk Of Magnesia) 2,400 mg PRN QHS PRN PO CONSTIPATION; Start 12/27/17 at 04:30 Alprazolam (Xanax) 1 mg PRN Q8HRS PRN PO ANXIETY / AGITATION; Start 12/27/17 at 04:45 Donepezil HCl (Aricept) 10 mg DAILY PO Last administered on 12/31/17at 07:37; Start 12/27/17 at 09:00 Citalopram Hydrobromide (CeleXA) 20 mg DAILY PO Last administered on 12/27/17at 08:31; Start 12/27/17 at 09:00; Stop 12/27/17 at 18:52; Status DC Diltiazem HCl (Cardizem 24hr Cd) 240 mg DAILY PO Last administered on 12/31/17at 07:36; Start 12/27/17 at 09:00 Furosemide (Lasix) 20 mg DAILY PO Last administered on 12/31/17at 07:36; Start at 09:00 Isosorbide Mononitrate (Imdur) 30 mg DAILY PO Last administered on 12/31/17 07: 37; Start 12/27/17 at 09:00 Apixaban (Eliquis) 5 mg BID PO Last administered on 12/31/17 19:55; Start 12/27 at 09:00 Losartan Potassium (Cozaar) 100 mg DAILY PO Last administered on 12/31/17 07:38 ; Start 12/27/17 at 09:00 Metoprolol Succinate (Toprol Xl) 100 mg DAILY PO Last administered on 12/31/17 07:37; Start 12/27/17 at 09:00 Multivitamins/ Calcium (Thera-M Plus) 1 tab DAILY PO Last administered on 07:37; Start 12/27/17 at 09:00 Atorvastatin Calcium (Lipitor) 10 mg QHS PO Last administered on 12/31/17 19:55 ; Start 12/27/17 at 21:00 Info (Anti-Coagulation Monitoring By Pharmacy) 1 each PRN DAILY PRN MC SEE COMMENTS; Start 12/27/17 at 04:45 Sertraline HCl (Zoloft) 50 mg DAILY PO Last administered on 12/29/17at 09:26; Start 12/28/17 at 09:00; Stop 12/30/17 at 08:00; Status DC Buspirone HCl (Buspar) 5 mg DAILY PO Last administered on 12/30/17at 08:04; Start 12/28/17 at 09:00; Stop 12/30/17 at 18:36; Status DC Potassium Chloride (Klor-Con) 20 meq BID PO Last administered on 12/31/17at 19:55 ; Start 12/27/17 at 21:00 Sertraline HCl (Zoloft) 75 mg DAILY PO Last administered on 12/31/17 07:38; Start 12/30/17 at 09:00 Buspirone HCl (Buspar) 5 mg BID@0900,1700 PO Last administered on 12/31/17at 17: 04; Start 12/31/17 at 09:00 Active Scripts Active Reported Buspirone Hcl 5 Mg Tablet 5 Mg PO BID@0900,1700 Zoloft (Sertraline Hcl) 50 Mg Tablet 75 Mg PO DAILY Klor-Con M20 (Potassium Chloride) 20 Meq Tab.er.prt 20 Meq PO BID Analgesic [place] (Methyl Salicylate/Menthol) 28 Gm Oint...g. 1 Bladimir TP PRN QID PRN Milk Of Magnesia (Magnesium Hydroxide) 400 Mg/5 Ml Oral.susp 2,400 Mg PO PRN QHS PRN Mag-Al Plus Xs Suspension (Mag Hydrox/Al Hydrox/Simeth) 30 Ml Oral.susp 15 Ml PO PRN AFTMEALHC PRN Tylenol (Acetaminophen) 325 Mg Tablet 650 Mg PO PRN Q6HRS PRN Donepezil Hcl 10 Mg Tablet 10 Mg PO DAILY Metoprolol Succinate ( Xl ) (Metoprolol Succinate) 100 Mg Tab.er.24h 100 Mg PO DAILY Losartan Potassium 100 Mg Tablet 100 Mg PO DAILY Diltiazem 24HR Cd (Diltiazem Hcl) 240 Mg Cap.er.24h 240 Mg PO DAILY Pravastatin Sodium 40 Mg Tablet 40 Mg PO QHS Multivitamins With Minerals (Multivitamin With Minerals) 1 Each Tablet 1 Tab PO DAILY Escitalopram Oxalate 10 Mg Tablet 10 Mg PO DAILY Alprazolam 1 Mg Tablet 1 Mg PO PRN TID PRN Eliquis (Apixaban) 5 Mg Tablet 5 Mg PO BID Isosorbide Mononitrate Er (Isosorbide Mononitrate) 30 Mg Tab.er.24h 30 Mg PO DAILY Furosemide 20 Mg Tablet 20 Mg PO DAILY I have reviewed the current psychotropics carefully including drug interactions. Risk benefit ratio favors no change other than as noted in my dictated progress note. Diagnosis: Problems: (1) Anxiety disorder (2) Impulse control disorder (3) Dementia, vascular, with delusions (4) Dementia, vascular, with depression (5) Dementia in Alzheimer's disease with delusions (6) Dementia in Alzheimer's disease with depression ADDISON FLORES MD Dec 31, 2017 19:57
[2018-01-01 05:54] VITALS: BP 136/80
[2018-01-01] MEDS: LOSARTAN 50 MG TABLET. PO SCH (08:40)
[2018-01-01] MEDS: APIXABAN 5 MG TABLET. PO SCH (08:40)
[2018-01-01] MEDS: DONEPEZIL HCL 10 MG TABLET PO SCH (08:40)
[2018-01-01] MEDS: busPIRone 5 MG TABLET. PO SCH (08:40)
[2018-01-01] MEDS: FUROSEMIDE 20 MG TABLET PO SCH (08:41)
[2018-01-01] MEDS: METOPROLOL SUCC 24HR ER 50 MG TAB.ER.24H. PO SCH (08:41)
[2018-01-01 08:42] VITALS: BP 136/80
[2018-01-01] MEDS: SERTRALINE 25 MG TABLET. PO SCH (08:42)
[2018-01-01] MEDS: ISOSORBIDE MONONITRATE ER 30 MG TAB.ER.24H PO SCH (08:42)
[2018-01-01] MEDS: POTASSIUM CHLORIDE 20 MEQ TABLET.ER. PO SCH (08:42)
[2018-01-01] MEDS: MULTIVITAMIN with MINERAL TABLET. PO SCH (08:42)
--- NOTE | 2018-01-01 17:22 | PDOC ---
Exam Note: Luciano Note: Please also refer to the separate dictated note~for this date of service dictated separately.~Patient seen individually. Discussed the patient with Nursing staff reviewed the chart.~Reviewed interim history and current functioning. Reviewed vital signs,~Labs/ Radiology~and current medications noted below. Continue current treatment with the changes noted in the dictated addendum note Assessment: Vital Signs: Vital Signs Date Time Temp Pulse Resp B/P (MAP) Pulse Ox O2 Delivery O2 Flow Rate FiO2 01/01/18 08:42 58 136/80 01/01/18 05:54 97.7 14 96 12/29/17 06:05 Room Air I&O Intake and Output 01/01/18 07:00 Intake Total 1080 ml Balance 1080 ml Intake Oral 1080 ml Current Medications: Meds: Current Medications Acetaminophen (Tylenol) 650 mg PRN Q6HRS PRN PO PAIN / TEMP; Start 12/27/17 at 04:30; Stop 01/01/18 at 15:01; Status DC Multi-Ingredient Ointment (Analgesic [place]) 1 bladimir PRN QID PRN TP MUSCLE PAIN; Start 12/27/17 at 04:30; Stop 01/01/18 at 15:01; Status DC Al Hydroxide/Mg Hydroxide (Mylanta Plus Xs) 15 ml PRN AFTMEALHC PRN PO DYSPEPSIA; Start 12/27/17 at 04:30; Stop 01/01/18 at 15:01; Status DC Magnesium Hydroxide (Milk Of Magnesia) 2,400 mg PRN QHS PRN PO CONSTIPATION; Start 12/27/17 at 04:30; Stop 01/01/18 at 15:01; Status DC Alprazolam (Xanax) 1 mg PRN Q8HRS PRN PO ANXIETY / AGITATION; Start 12/27/17 at 04:45; Stop 01/01/18 at 15:01; Status DC Donepezil HCl (Aricept) 10 mg DAILY PO Last administered on 01/01/18at 08:40; Start 12/27/17 at 09:00; Stop 01/01/18 at 15:01; Status DC Citalopram Hydrobromide (CeleXA) 20 mg DAILY PO Last administered on 12/27/17at 08:31; Start 12/27/17 at 09:00; Stop 12/27/17 at 18:52; Status DC Diltiazem HCl (Cardizem 24hr Cd) 240 mg DAILY PO Last administered on 01/01/18at 08:41; Start 12/27/17 at 09:00; Stop 01/01/18 at 15:01; Status DC Furosemide (Lasix) 20 mg DAILY PO Last administered on 01/01/18at 08:41; Start at 09:00; Stop 01/01/18 at 15:01; Status DC Isosorbide Mononitrate (Imdur) 30 mg DAILY PO Last administered on 01/01/18at 08: 42; Start 12/27/17 at 09:00; Stop 01/01/18 at 15:01; Status DC Apixaban (Eliquis) 5 mg BID PO Last administered on 01/01/18at 08:40; Start 12/27 at 09:00; Stop 01/01/18 at 15:01; Status DC Losartan Potassium (Cozaar) 100 mg DAILY PO Last administered on 01/01/18at 08:40 ; Start 12/27/17 at 09:00; Stop 01/01/18 at 15:01; Status DC Metoprolol Succinate (Toprol Xl) 100 mg DAILY PO Last administered on 01/01/18at 08:41; Start 12/27/17 at 09:00; Stop 01/01/18 at 15:01; Status DC Multivitamins/ Calcium (Thera-M Plus) 1 tab DAILY PO Last administered on at 08:42; Start 12/27/17 at 09:00; Stop 01/01/18 at 15:01; Status DC Atorvastatin Calcium (Lipitor) 10 mg QHS PO Last administered on 12/31/17at 19:55 ; Start 12/27/17 at 21:00; Stop 01/01/18 at 15:01; Status DC Info (Anti-Coagulation Monitoring By Pharmacy) 1 each PRN DAILY PRN MC SEE COMMENTS; Start 12/27/17 at 04:45; Stop 01/01/18 at 15:01; Status DC Sertraline HCl (Zoloft) 50 mg DAILY PO Last administered on 12/29/17at 09:26; Start 12/28/17 at 09:00; Stop 12/30/17 at 08:00; Status DC Buspirone HCl (Buspar) 5 mg DAILY PO Last administered on 12/30/17at 08:04; Start 12/28/17 at 09:00; Stop 12/30/17 at 18:36; Status DC Potassium Chloride (Klor-Con) 20 meq BID PO Last administered on 01/01/18at 08:42 ; Start 12/27/17 at 21:00; Stop 01/01/18 at 15:01; Status DC Sertraline HCl (Zoloft) 75 mg DAILY PO Last administered on 01/01/18at 08:42; Start 12/30/17 at 09:00; Stop 01/01/18 at 15:01; Status DC Buspirone HCl (Buspar) 5 mg BID@0900,1700 PO Last administered on 01/01/18at 08: 40; Start 12/31/17 at 09:00; Stop 01/01/18 at 15:01; Status DC Active Scripts Active Reported Buspirone Hcl 5 Mg Tablet 5 Mg PO BID@0900,1700 Zoloft (Sertraline Hcl) 50 Mg Tablet 75 Mg PO DAILY Klor-Con M20 (Potassium Chloride) 20 Meq Tab.er.prt 20 Meq PO BID Analgesic [place] (Methyl Salicylate/Menthol) 28 Gm Oint...g. 1 Bladimir TP PRN QID PRN Milk Of Magnesia (Magnesium Hydroxide) 400 Mg/5 Ml Oral.susp 2,400 Mg PO PRN QHS PRN Mag-Al Plus Xs Suspension (Mag Hydrox/Al Hydrox/Simeth) 30 Ml Oral.susp 15 Ml PO PRN AFTMEALHC PRN Tylenol (Acetaminophen) 325 Mg Tablet 650 Mg PO PRN Q6HRS PRN Donepezil Hcl 10 Mg Tablet 10 Mg PO DAILY Metoprolol Succinate ( Xl ) (Metoprolol Succinate) 100 Mg Tab.er.24h 100 Mg PO DAILY Losartan Potassium 100 Mg Tablet 100 Mg PO DAILY Diltiazem 24HR Cd (Diltiazem Hcl) 240 Mg Cap.er.24h 240 Mg PO DAILY Pravastatin Sodium 40 Mg Tablet 40 Mg PO QHS Multivitamins With Minerals (Multivitamin With Minerals) 1 Each Tablet 1 Tab PO DAILY Alprazolam 1 Mg Tablet 1 Mg PO PRN Q8HRS PRN Eliquis (Apixaban) 5 Mg Tablet 5 Mg PO BID Isosorbide Mononitrate Er (Isosorbide Mononitrate) 30 Mg Tab.er.24h 30 Mg PO DAILY Furosemide 20 Mg Tablet 20 Mg PO DAILY I have reviewed the current psychotropics carefully including drug interactions. Risk benefit ratio favors no change other than as noted in my dictated progress note. 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
--- NOTE | 2018-01-01 21:40 | PN ---
DATE: 12/29/2017 PSYCHIATRIC PROGRESS NOTE This late entry 12/29/2017 covers elements not covered in my initial note 12/29/2017. SUBJECTIVE: I met with the patient in the evening. The patient has done reasonably well, alert, oriented to place and situation. Denies suicidal ideation, helping other patients. He has taken a liken to one of the other demented female patients, believes she is his . REVIEW OF SYSTEMS: No CV, , pulmonary, eye, ENT system symptoms on review. MENTAL STATUS EXAM: Oriented to himself and situation. Speech coherent, pleasant, verbal, as I met with him in his room smiling. Abstraction fair, computation impaired, language function intact, attention span short. Memory is impaired for short-term events. IMPRESSION: Major depressive disorder, major neurocognitive disorder, Alzheimer, vascular with delusion, depression. Rest unchanged. PLAN: Continue psychotropics mentioned in my initial note. MAN Lee FLORES MD DR: KENNY/lakia JOB#: [id number] / [id number]
--- NOTE | 2018-01-01 21:46 | PN ---
DATE: 12/30/2017 This is a late entry 12/30/2017 covers elements not covered in my initial note 12/30/2017. SUBJECTIVE: Met with the patient in the evening. Reportedly, per nursing report, he has been flirting with one of the other female, demented patients, but not inappropriately so. Denies suicidal ideation. The previous evening, he was telling nursing staff that one of the other demented female patients on the unit was his daughter. REVIEW OF SYSTEMS: No CV, , pulmonary, eye, ENT system symptoms on review. MENTAL STATUS EXAM: Oriented to self, situation. Speech coherent, abstraction fair, computation impaired, language function intact, attention span short. Mood and affect remain somewhat anxious. LABORATORY DATA: Reviewed. IMPRESSION: Unchanged from initial note. PLAN: Increase BuSpar to 5 mg twice a day. Continue rest unchanged. MAN Lee FLORES MD DR: KENNY/lakia JOB#: [id number] / [id number]
--- NOTE | 2018-01-02 01:17 | DS ---
DATE OF DISCHARGE: 01/01/2018 DISCHARGE SUMMARY/PSYCHIATRIC PROGRESS NOTE This note covers elements not covered in my initial note of 01/01/2018. REASON FOR ADMISSION: Please refer to the admission history for details. Briefly, the patient is an 82-year-old male referred to us from [facility] where he presented from home after threatening suicide by jumping out of the second jesus of the house. He was aggressive towards his daughter, hitting his daughter's bedroom door at night, paranoid, agitated, out of control. He had failed outpatient psychiatric interventions. SIGNIFICANT FINDINGS AND CLINICAL COURSE: Following admission, the patient was seen daily individually from a psychiatric standpoint by myself, followed medically per Dr. Clancy/Dr. Scanlon. The patient remained quite withdrawn, anxious, but more oriented than he was initially. Adjustments were made in his psychotropics. He seemed to respond to a combination of Zoloft 75 mg a day, Xanax p.r.n., Aricept 10 mg a day, BuSpar 5 mg twice a day. REVIEW OF SYSTEMS: Prior to discharge on 01/01/2018, no CV, , pulmonary, eye, ENT system symptoms on review. MENTAL STATUS EXAM: Oriented to himself and situation. Speech has some latency, coherent. Abstraction fair, computation impaired, language function intact. Attention span short. Short-term memory is impaired. No suicidal or homicidal ideation. CONDITION AT DISCHARGE: Improved. FINAL DIAGNOSES: Major depressive disorder, recurrent, in partial remission; anxiety disorder, unspecified; cognitive disorder, unspecified. Rest unchanged from admission. DISCHARGE MEDICATIONS: Please refer to the MRAD. DISCHARGE INSTRUCTIONS: Outpatient psychiatric followup and medical followup with his primary care physician. Time for discharge management greater than 30 minutes. MAN Lee FLORES MD DR: KENNY/lakia JOB#: [id number] / [id number]
--- NOTE | 2018-01-02 09:49 | PN ---
DATE: 12/31/2017 PSYCHIATRIC PROGRESS NOTE This late entry 12/31/2017 covers elements not covered in my initial note 12/31/2017. SUBJECTIVE: I met with the patient in the afternoon. Overall, the patient has been compliant with his medications, somewhat withdrawn at times, but pleasant. He believes one of the other demented female patients on the unit is his , but is not disruptive in any way. REVIEW OF SYSTEMS: No CV, , pulmonary, eye, ENT system symptoms on review. MENTAL STATUS EXAM: Oriented to himself and situation. Speech is coherent, has some latency. Abstraction fair, computation impaired, language function intact, attention span short. Mood and affect remain somewhat withdrawn. LABORATORY DATA: Reviewed. IMPRESSION: Unchanged from initial note. PLAN: No change from a psychiatric standpoint. MAN Lee FLORES MD DR: KENNY/lakia JOB#: [id number] / [id number]
== END 2018-01-01 14:50 | disposition home or self-care (01) | DRG 885 ==
LOC: UNDOADMIN 02:27 → GEROPSY 02:27 → EEVIPCON 02:27 → GEROPSY 04:16
PROVIDERS: ADMIT Psychiatry & Neurology Psychiatry; ATTEND Psychiatry & Neurology Psychiatry
DX: F33.9 Major depressive disorder, recurrent, unspecified (principal); G30.9 Alzheimer's disease, unspecified; F01.51 Vascular dementia, unspecified severity, with behavioral disturbance; I48.91 Unspecified atrial fibrillation; E11.9 Type 2 diabetes mellitus without complications; F02.81 Dementia in other diseases classified elsewhere, unspecified severity, with behavioral disturbance; J44.9 Chronic obstructive pulmonary disease, unspecified; E78.5 Hyperlipidemia, unspecified; F33.41 Major depressive disorder, recurrent, in partial remission; F41.9 Anxiety disorder, unspecified; G89.29 Other chronic pain; F63.9 Impulse disorder, unspecified; I10 Essential (primary) hypertension; N40.0 Benign prostatic hyperplasia without lower urinary tract symptoms; Z79.899 Other long term (current) drug therapy; Z87.891 Personal history of nicotine dependence; Z95.0 Presence of cardiac pacemaker; Z88.8 Allergy status to other drugs, medicaments and biological substances
CPT/HCPCS: 36415; 80053; 80061; 82306; 82607; 83036; 83540; 83550; 83735; 84436; 84443; 84480; 85025; 86593; 93005